=== PATIENT | male | born 1975 | race Caucasian/White ===

== ENCOUNTER → 2017-09-30 | Outpatient (CLI) | payer BC ==
[2017-09-30 11:53] LABS: Blood Urea Nitrogen 14 mg/dL (9-20)
--- NOTE | 2017-09-30 13:34 | CT ---
EXAMINATION TYPE: CT chest w con DATE OF EXAM: 09/30/2017 COMPARISON: Prior chest radiograph performed at an outside institution. Images not available. HISTORY: Solitary pulmonary nodule on prior outside chest radiograph. CT DLP: 693 mGycm. Automated Exposure Control for Dose Reduction was Utilized. TECHNIQUE: CT scan of the thorax is performed following with IV Contrast, patient injected with 100 mL of Omnipaque 300. FINDINGS: LUNGS: The lungs are grossly clear, there is no concerning parenchymal mass or nodule identified. T here is no pleural effusion or pneumothorax seen. The tracheobronchial tree is patent. MEDIASTINUM: There are no greater than 1 cm hilar or mediastinal lymph nodes. No pericardial effusi on is seen. OTHER: Small splenules are seen adjacent to the [place] spleen. Nonspecific sclerotic foci are seen of the lateral margin of rib 5 on the left, possibly related to bone islands or prior injury. IMPRESSION: 1. No evidence of pulmonary nodule. The previously seen abnormality could have related to a pulmonary vessel, patient's nipple, or have been artifactual. 2. Nonspecific punctate sclerotic foci of left lateral rib 5. These could possibly represent bone isl ands, sequela of prior injury, or much less likely neoplasm. Bone scan or short-term surveillance cou ld be performed if clinically indicated.
== END | disposition home or self-care (01) ==
LOC: RADCTMAIN 11:24
PROVIDERS: ATTEND Family Medicine
DX: R91.1 Solitary pulmonary nodule (principal)
CPT/HCPCS: 82565; 84520; 71260; 36415; Q9967

== ENCOUNTER → 2018-11-24 | Outpatient (CLI) | payer BC ==
--- NOTE | 2018-11-24 14:23 | US ---
EXAMINATION TYPE: US carotid duplex BILAT DATE OF EXAM: 11/24/2018 COMPARISON: NONE CLINICAL HISTORY: H34.212 PARTIAL ARTERY OCCLUSION. EXAM MEASUREMENTS: RIGHT: Peak Systolic Velocity (PSV) cm/sec ----- Right CCA: 95.3 ----- Right ICA: 61.6 ----- Right ECA: 103.1 ICA/CCA ratio: 0.6 RIGHT: End Diastole cm/sec ----- Right CCA: 25.4 ----- Right ICA: 29.3 ----- Right ECA: 18.9 LEFT: Peak Systolic Velocity (PSV) cm/sec ----- Left CCA: 102.8 ----- Left ICA: 91.2 ----- Left ECA: 102.2 ICA/CCA ratio: 0.9 LEFT: End Diastole cm/sec ----- Left CCA: 31.7 ----- Left ICA: 28.8 ----- Left ECA: 20.3 VERTEBRALS (direction of flow): Right Vertebral: Antegrade Left Vertebral: Antegrade Rhythm: Normal Patient has thick neck. No significant velocity elevations. IMPRESSION: 1. No significant flow-limiting stenosis based on ultrasound Doppler velocities. Criteria for Assigning % of Stenosis / Diameter reduction (Estimation based on the indirect measurements of the internal carotid artery velocities (ICA PSV). 1. Normal (no stenosis)=ICA PSV < 125 cm/s: ratio < 2.0: ICA EDV<40 cm/s. 2. Less than 50% stenosis=ICA PSV < 125 cm/s: ratio < 2.0: ICA EDV<40 cm/s. 3. 50 to 69% stenosis=ICA PSV of 125 to 230 cm/s: ration 2.0 ? 4.0: ICA EDV 40-100 cm/s. 4. Greater than 70% stenosis to near occlusion= ICA PSV > 230 cm/s: ratio > 4.0: ICA EDV > 100 cm/s. 5. Near occlusion= ICA PSV velocities may be low or undetectable: variable ratio and ICA EDV. 6. Total occlusion=unable to detect flow.
== END ==
LOC: RADUSWWP 12:20
PROVIDERS: ATTEND Ophthalmology
DX: H34.212 Partial retinal artery occlusion, left eye (principal)
CPT/HCPCS: 93880